=== PATIENT | female | born 1940 | race Asian ===

== ENCOUNTER 2017-01-03 10:34 | Emergency (ER) | payer OTHER ==
[~2017-01-03] VITALS: Ht 167.6 cm; Wt 83.5 kg
[~2017-01-03 10:34] MED LIST: ALBU0.0813 IN; ALBU90AE13 INH; BENICAR HCT1 TAB PO; FLUTMIS6 INH; IBUP800T30 PO; LORTAB1 TAB PO; MILLIPRED DP5 MG OR; SINGULAIR10 MG PO; Z-PAK PO
[2017-01-03 11:46] LABS: PLATELET COUNT 225 K/uL (152-353)
[2017-01-03 13:05] VITALS: BP 148/83; TEMP 98.3
== END 2017-01-03 13:11 | disposition home or self-care (01) ==
LOC: ED 10:34
DX: L04.0 Acute lymphadenitis of face, head and neck (principal)
CPT/HCPCS: 36415; 85027; 99283

== ENCOUNTER 2017-03-14 12:00 | Outpatient (CLI) | payer OTHER ==
[2017-03-14 13:11] LABS: POTASSIUM 4.2 mmol/L (3.6-5.2); SODIUM 140 mmol/L (136-145)
[2017-03-14 13:32] LABS: PLATELET COUNT 203 K/uL (152-353)
== END 2017-03-14 19:05 | disposition home or self-care (01) ==
LOC: LAB 12:00
PROVIDERS: Nurse Practitioner Family
DX: J45.998 Other asthma (principal); I10 Essential (primary) hypertension; Z79.899 Other long term (current) drug therapy; Z51.81 Encounter for therapeutic drug level monitoring; R53.83 Other fatigue; R53.81 Other malaise
CPT/HCPCS: 80053; 80061; 83036; 84436; 84443; 85007; 85027

== ENCOUNTER 2018-06-26 10:56 | Outpatient (CLI) | payer OTHER | END 2018-06-26 20:25 | disposition home or self-care (01) | LOC: RAD 10:56 | DX: J40 Bronchitis, not specified as acute or chronic (principal); R06.02 Shortness of breath; J45.909 Unspecified asthma, uncomplicated ==

== ENCOUNTER 2019-06-18 10:44 | Outpatient (CLI) | payer OTHER | END 2019-06-18 21:50 | disposition home or self-care (01) | LOC: RAD 10:44 | DX: R05 Cough (principal) ==

== ENCOUNTER 2020-11-12 16:20 | Outpatient (CLI) | payer OTHER | END 2020-11-12 20:34 | disposition home or self-care (01) | LOC: RAD 16:20 | PROVIDERS: ATTEND Nurse Practitioner Family | DX: I10 Essential (primary) hypertension (principal); J32.8 Other chronic sinusitis; E78.49 Other hyperlipidemia; J45.909 Unspecified asthma, uncomplicated; R73.03 Prediabetes; R79.89 Other specified abnormal findings of blood chemistry; R89.8 Other abnormal findings in specimens from other organs, systems and tissues ==

== ENCOUNTER 2020-12-30 09:55 | Outpatient (CLI) | payer OTHER | END 2020-12-30 21:53 | disposition home or self-care (01) | LOC: MAMMO 09:55 | PROVIDERS: ATTEND Nurse Practitioner Family | DX: Z12.31 Encounter for screening mammogram for malignant neoplasm of breast (principal); I10 Essential (primary) hypertension; J32.9 Chronic sinusitis, unspecified; E78.49 Other hyperlipidemia; J45.909 Unspecified asthma, uncomplicated; R73.03 Prediabetes; R79.89 Other specified abnormal findings of blood chemistry; R89.8 Other abnormal findings in specimens from other organs, systems and tissues ==

== ENCOUNTER 2021-01-29 11:15 | Outpatient (CLI) | payer OTHER ==
[2021-01-29 11:49] LABS: PLATELET COUNT 156 K/uL (152-353)
== END 2021-01-29 22:37 | disposition home or self-care (01) ==
LOC: LABW 11:15
PROVIDERS: ATTEND Internal Medicine Critical Care Medicine
DX: J45.909 Unspecified asthma, uncomplicated (principal)
CPT/HCPCS: 36415; 82785; 85027; 86003; 86331; 86602; 86606; 86671

== ENCOUNTER 2023-01-04 10:27 | Outpatient (CLI) | payer OTHER | END 2023-01-04 19:14 | disposition home or self-care (01) | LOC: US 10:27 | PROVIDERS: ATTEND Nurse Practitioner Family | DX: N39.0 Urinary tract infection, site not specified (principal) ==